=== PATIENT | female | born 1990 | race American Indian/Alaskan Native ===

== ENCOUNTER 2019-03-14 19:18 | Emergency (ER) | payer OTHER ==
--- NOTE | 2019-03-14 19:24 | Emergency Department Report ---
Blank Doc - Documentation Documentation: This is a 28-year-old female that presents with RUQ pain. Denies any n/v. This initial assessment/diagnostic orders/clinical plan/treatment(s) is/are subject to change based on patient's health status, clinical progression and re- assessment by fellow clinical providers in the ED. Further treatment and workup at subsequent clinical providers discretion. Patient/guardians urged not to elope from the ED as their condition may be serious if not clinically assessed and managed. Initial orders include: 1- Patient sent to [facility] for further evaluation and treatment 2- labs 3- UA
[2019-03-14 19:51] LABS: Basophils % (Auto) 0.7 % (0.0-1.8); Eosinophils # (Auto) 0.2 K/mm3 (0.0-0.4); Eosinophils % (Auto) 2.4 % (0.0-4.3); Hematocrit 38.2 % (30.3-42.9); Hemoglobin 12.7 gm/dl (10.1-14.3); Lymphocytes # (Auto) 2.7 K/mm3 (1.2-5.4); Mean Corpuscular HGB Conc 33 % (30-34); Mean Corpuscular Volume 83 fl (79-97); Monocytes # (Auto) 0.6 K/mm3 (0.0-0.8); Monocytes % (Auto) 8.4 % (0.0-7.3); Platelet Count 284 K/mm3 (140-440); Red Blood Count 4.58 M/mm3 (3.65-5.03); Red Cell Distribution Width 13.7 % (13.2-15.2)
[2019-03-14 20:13] LABS: Alanine Aminotransferase 10 units/L (7-56); Albumin 3.9 g/dL (3.9-5); BUN/Creatinine Ratio 18; Blood Urea Nitrogen 11 mg/dL (7-17); Calcium 9.2 mg/dL (8.4-10.2); Hemolysis Index 3
[2019-03-14 20:23] LABS: Bacteria,Urine 1+ /HPF (Negative); Bilirubin,Urine NEG (Negative); Blood,Urine NEG (Negative); Color,Urine Yellow (Yellow); Mucus,Urine FEW /HPF; Protein,Urine <15 mg/dL mg/dL (Negative); Urobilinogen,Urine < 2.0 mg/dL (<2.0)
--- NOTE | 2019-03-14 21:08 | Emergency Department Report ---
ED Abdominal Pain HPI - General Chief Complaint: Abdominal Pain Stated Complaint: ABDOMNAL PAIN Time Seen by Provider: 03/14/19 19:23 Source: patient Mode of arrival: Ambulatory Limitations: No Limitations - History of Present Illness Initial Comments: 28-year-old obese Afro-[place] female to emergency Department complaining of a one and a half day history of nausea, bloating and upper abdominal pain associated with possible constipation. Patient states that she pizza, which was punished by work on yesterday and after eating pizza. She noticed some bloating and discomfort to her abdomen. Since that time she's been nauseous and having heavy pain to the epigastric area region that radiates throughout the abdomen. No vomiting or diarrhea noted. No hemoptysis, hematemesis, no dysuria, no hematuria. No fever, chills, sweats. No chest pain or palpitations. Feels very strongly that the food causes pain wound to make sure that she was okay was to reason for visit to emergency department today MD Complaint: abdominal pain Severity: mild Quality: aching Consistency: constant Improves With: nothing Worsens With: nothing Context: possible food poisoning Associated Symptoms: nausea. denies: diarrhea, fever, constipation, dysuria, hematemesis, hematochezia, hematuria, anorexia, syncope - Related Data Previous Rx's Medication Instructions Recorded Last Taken Type Hyoscyamine Subl [Levsin Sl 0.125 0.125 mg SL Q6HR PRN #20 tab 03/14/19 Unknown Rx TAB] Ondansetron [Zofran ODT TAB] 8 mg PO Q12HR #14 tabtaty 03/14/19 Unknown Rx RX: Omeprazole 40 mg PO DAILY #14 capsule. 03/14/19 Unknown Rx Allergies Allergy/AdvReac Type Severity Reaction Status Date / Time No Known Allergies Allergy Unverified 03/14/19 19:25 ED Review of Systems ROS: Stated complaint: ABDOMNAL PAIN Other details as noted in HPI Constitutional: denies: chills, fever Eyes: denies: eye pain, eye discharge, vision change ENT: denies: ear pain, throat pain Respiratory: denies: cough, shortness of breath, wheezing Cardiovascular: denies: chest pain, palpitations Endocrine: no symptoms reported Gastrointestinal: abdominal pain, nausea. denies: diarrhea Genitourinary: denies: urgency, dysuria, discharge Musculoskeletal: denies: back pain, joint swelling, arthralgia Skin: denies: rash, lesions Neurological: denies: headache, weakness, paresthesias Psychiatric: denies: anxiety, depression Hematological/Lymphatic: denies: easy bleeding, easy bruising ED Past Medical Hx - Past Medical History Previous Medical History?: No Hx COPD: Yes Additional medical history: Obesity - Surgical History Past Surgical History?: Yes Additional Surgical History: Skin graft right arm - Social History Smoking Status: Never Smoker Substance Use Type: Alcohol - Medications Home Medications: Home Medications Medication Instructions Recorded Confirmed Last Taken Type Hyoscyamine Subl [Levsin Sl 0.125 0.125 mg SL Q6HR PRN #20 tab 03/14/19 Unknown Rx TAB] Ondansetron [Zofran ODT TAB] 8 mg PO Q12HR #14 tab.rapdis 03/14/19 Unknown Rx RX: Omeprazole 40 mg PO DAILY #14 capsule. 03/14/19 Unknown Rx ED Physical Exam - General Limitations: No Limitations General appearance: alert, in no apparent distress - Head Head exam: Present: atraumatic, normocephalic - Eye Eye exam: Present: normal appearance, PERRL, EOMI Pupils: Present: normal accommodation - ENT ENT exam: Present: mucous membranes moist - Neck Neck exam: Present: normal inspection - Respiratory Respiratory exam: Present: normal lung sounds bilaterally. Absent: respiratory distress, rales, rhonchi, chest wall tenderness, accessory muscle use, decreased breath sounds - Cardiovascular Cardiovascular Exam: Present: regular rate, normal rhythm. Absent: systolic murmur, diastolic murmur, rubs, gallop - GI/Abdominal GI/Abdominal exam: Present: soft, tenderness (to the epigastric region with deep palpation. Bowel sounds positive throughout. Abdomen is soft. No Rovsing sign, no goiter, no tenderness at McBurney's. No Munoz's sign.), normal bowel sounds. Absent: organomegaly, mass, bruit, pulsatile mass - Extremities Exam Extremities exam: Present: normal inspection - Back Exam Back exam: Present: normal inspection - Neurological Exam Neurological exam: Present: alert, oriented X3 - Psychiatric Psychiatric exam: Present: normal affect, normal mood - Skin Skin exam: Present: warm, dry, intact, normal color. Absent: rash ED Course Vital Signs 03/14/19 03/14/19 19:23 23:53 Temperature 97.5 F L 98.2 F Pulse Rate 82 81 Respiratory 20 20 Rate Blood Pressure 156/96 Blood Pressure 132/87 [Right] O2 Sat by Pulse 100 96 Oximetry ED Medical Decision Making - Lab Data Result diagrams: 03/14/19 19:31 03/14/19 19:31 - Medical Decision Making Morbidly obese -L[place] female with abdominal pain status post ingestion of pizza suspected food poisoning. Laboratory data is normal. An x- ray reveals no obstructive processes. She tolerates by mouth. Plan is to treat her since her symptom and have her reevaluated. Her abdominal discomfort in 24-48 hours. She was advised to follow-up in the emergency department. There is no signs of any acute abdomen at this present time - Differential Diagnosis acid reflux disease, peptic ulcer disease, food poisoning, colitis, maligna Critical care attestation.: If time is entered above; I have spent that time in minutes in the direct care of this critically ill patient, excluding procedure time. ED Disposition Clinical Impression: Abdominal pain Disposition: DC-01 TO HOME OR SELFCARE Is pt being admited?: No Does the pt Need Aspirin: No Condition: Stable Instructions: Gastroenteritis (ED), Food Poisoning (ED), Abdominal Pain (ED) Prescriptions: Hyoscyamine Subl [Levsin Sl 0.125 TAB] 0.125 mg SL Q6HR PRN #20 tab PRN Reason: abdominal cramps and spasms RX: Omeprazole 40 mg PO DAILY #14 capsule. Ondansetron [Zofran ODT TAB] 8 mg PO Q12HR #14 tab.bobby Referrals: [facility] MD JESSICA [Primary Care Provider] - 3-5 Days Forms: Accompanied Note, Work/School Release Form(ED)
--- NOTE | 2019-03-14 22:12 | XRay Report ---
PROCEDURE: XR ABD SERIES W CXR 1V TECHNIQUE: Abdominal series complete, including supine and upright AP views of the abdomen and front al chest. HISTORY: abd pain and bloating COMPARISONS: None . FINDINGS: Heart: Normal. Mediastinum/Vessels: Normal. Lungs/Pleural space: Normal. Bowel gas pattern: Nonobstructive . Masses or calcifications: None . Bony structures: No acute osseous abnormality . Other: No free intraperitoneal air . IMPRESSION: No acute abnormality. This document is electronically signed by Scotty Craft MD., March 14 2019 10:10:04 PM ET
[2019-03-14 23:55] VITALS: BP 132/87
== END 2019-03-14 23:30 | disposition home or self-care (01) ==
LOC: ED 19:18
DX: R10.9 Unspecified abdominal pain (principal); R11.0 Nausea; J44.9 Chronic obstructive pulmonary disease, unspecified
CPT/HCPCS: 36415; 74022; 80053; 81001; 83690; 84703; 85025